=== PATIENT | female | born 2000 | race Caucasian/White ===

== ENCOUNTER 2021-01-02 09:50 | Emergency (ER) | payer MEDICAID, SELFPAY ==
[2021-01-02 09:51] VITALS: BP 118/67; PULSE 77; RESP 16; TEMP 36.4; O2SAT 100; BMI 29.9
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
[2021-01-02 11:13] VITALS: PULSE 84; RESP 16; O2SAT 100
--- NOTE | 2021-01-02 11:13 | ED.RN ---
THIS NURSE REVIEWED D/C INSTRUCTIONS WITH PT AND VISITOR. PT VERBALIZED UNDERSTANDING OF INSTRUCTIONS. PT DENIES FURTHER NEEDS OR QUESTIONS AT THIS TIME
== END 2021-01-02 11:14 | disposition home or self-care (01) ==
PROVIDERS: Emergency Provider Emergency Medicine
DX: J02.9 Acute pharyngitis, unspecified (principal); R06.02 Shortness of breath; R11.0 Nausea
CPT/HCPCS: 70360; 99282